=== PATIENT | male | born 1985 | race Caucasian/White ===

== ENCOUNTER 2020-03-26 10:53 | Emergency (ER) | payer SELFPAY ==
[2020-03-26] MEDS ORDERED: LORazepam 2 MG/ML VIAL ONE ×2 (11:18→11:35)
[2020-03-26] MEDS ORDERED: Ringers Lactate 1,000 ML IV ONE (11:18)
[2020-03-26 11:33] LABS: Absolute Lymphocytes (CBC) 1.7 K/uL (0.7-4.9); Basophils % 0.3 % (0-1.3); Hematocrit 41.6 % (39.6-49.0); Lymphocytes % 16.3 % (15.3-44.8); MPV 7.5 fL (7.6-11.3); RBC Red Blood Cell Count 4.88 M/uL (4.33-5.43)
[2020-03-26 11:41] LABS: Protime INR 0.97
[2020-03-26 12:00] LABS: ALT/SGPT 66 U/L (12-78); AST/SGOT 40 U/L (15-37); Alkaline Phosphatase 159 U/L (45-117); BUN Blood Urea Nitrogen 17 mg/dL (7-18); Bicarbonate 27 mmol/L (21-32); Bilirubin Direct 0.2 mg/dL (0-0.2); Bilirubin Total 0.6 mg/dL (0.2-1.0); Glucose Level 101 mg/dL (74-106); Potassium 3.7 mmol/L (3.5-5.1); Protein, Total 8.3 g/dL (6.4-8.2); Sodium Level 136 mmol/L (136-145)
--- NOTE | 2020-03-26 12:20 | EDPHYS ---
Physician Documentation [facility] Name: Arnie Macedo Age: 34 yrs Sex: Male : 1985 Arrival Date: 03/26/2020 Time: 10:55 Bed 2 Private MD: ED Physician Jose Alfredo York HPI: 03/26 11:59 This 34 yrs old Male presents to ER via EMS with complaints of DRUG WITHDRAWL.jr8 11:59 Patient arrested yesterday. Stated that last use was yesterday. Uses meth and heroin. jr8 Stated that his whole body hurts and feels cold and nauseated . Severity of symptoms: At their worst the symptoms were moderate in the emergency department the symptoms are unchanged. The patient has not experienced similar symptoms in the past. The patient has not recently seen a physician. Historical: - Allergies: 11:00 No Known Allergies; hb - Home Meds: 11:00 None [Active]; hb - PMHx: 11:00 None; hb - PSHx: 11:00 None; hb - Immunization history:: Adult Immunizations up to date. - Social history:: Smoking status: Patient reports the use of cigarette tobacco products, smokes one pack cigarettes per day. ROS: 11:59 Eyes: Negative for injury, pain, redness, and discharge, ENT: Negative for injury, jr8 pain, and discharge, Neck: Negative for injury, pain, and swelling, Cardiovascular: Negative for chest pain, palpitations, and edema, Respiratory: Negative for shortness of breath, cough, wheezing, and pleuritic chest pain, Abdomen/GI: Negative for abdominal pain, nausea, vomiting, diarrhea, and constipation, Back: Negative for injury and pain, MS/Extremity: Negative for injury and deformity, Skin: Negative for injury, rash, and discoloration, Neuro: Negative for headache, weakness, numbness, tingling, and seizure. 11:59 Constitutional: Positive for body aches, chills, fatigue. Exam: 11:59 Eyes: Pupils equal round and reactive to light, extra-ocular motions intact. Lids and jr8 lashes normal. Conjunctiva and sclera are non-icteric and not injected. Cornea within normal limits. Periorbital areas with no swelling, redness, or edema. ENT: Nares patent. No nasal discharge, no septal abnormalities noted. Tympanic membranes are normal and external auditory canals are clear. Oropharynx with no redness, swelling, or masses, exudates, or evidence of obstruction, uvula midline. Mucous membranes moist. Neck: Trachea midline, no thyromegaly or masses palpated, and no cervical lymphadenopathy. Supple, full range of motion without nuchal rigidity, or vertebral point tenderness. No Meningismus. Cardiovascular: Regular rate and rhythm with a normal S1 and S2. No gallops, murmurs, or rubs. Normal PMI, no JVD. No pulse deficits. Respiratory: Lungs have equal breath sounds bilaterally, clear to auscultation and percussion. No rales, rhonchi or wheezes noted. No increased work of breathing, no retractions or nasal flaring. Abdomen/GI: Soft, non-tender, with normal bowel sounds. No distension or tympany. No guarding or rebound. No evidence of tenderness throughout. Back: No spinal tenderness. No costovertebral tenderness. Full range of motion. Skin: Warm, dry with normal turgor. Normal color with no rashes, no lesions, and no evidence of cellulitis. MS/ Extremity: Pulses equal, no cyanosis. Neurovascular intact. Full, normal range of motion. Neuro: Awake and alert, GCS 15, oriented to person, place, time, and situation. Cranial nerves II-XII grossly intact. Motor strength 5/5 in all extremities. Sensory grossly intact. Cerebellar exam normal. Normal gait. Vital Signs: 10:56 BP 154 / 92; Pulse 58; Resp 16; Temp 98.7; Pulse Ox 100% ; Weight 81.65 kg; Height 6 hb ft. 1 in. (185.42 cm); Pain 10/10; 12:18 BP 129 / 92; Pulse 63; Resp 16; Pulse Ox 100% on R/A; sv 10:56 Body Mass Index 23.75 (81.65 kg, 185.42 cm) hb MDM: 10:58 Patient medically screened. [facility] 12:13 Data reviewed: vital signs, nurses notes, lab test result(s), EKG. Data interpreted: jr8 Pulse oximetry: on room air is 100 %. Interpretation: normal. Counseling: I had a detailed discussion with the patient and/or guardian regarding: the historical points, exam findings, and any diagnostic results supporting the discharge/admit diagnosis, lab results, the need for outpatient follow up, a psychiatrist, to return to the emergency department if symptoms worsen or persist or if there are any questions or concerns that arise at home. Response to treatment: the patient's symptoms have mildly improved after treatment. 03/26 11:03 Order name: Acetaminophen; Complete Time: 12:13 [facility] 03/26 11:03 Order name: Basic Metabolic Panel; Complete Time: 12: [facility] 03/26 11:03 Order name: CBC with Diff; Complete Time: 11: [facility] 03/26 11:03 Order name: ETOH Level; Complete Time: [facility] 03/26 11:03 Order name: Hepatic Function; Complete Time: 12: [facility] 03/26 11:03 Order name: PT-INR; Complete Time: [facility] 03/26 11:03 Order name: Ptt, Activated; Complete Time: 59 [facility] 03/26 11:03 Order name: Salicylate; Complete Time: 12:13 [facility] 03/26 11:03 Order name: Urine Drug Screen [facility] 03/26 11:03 Order name: EKG; Complete Time: 11:04 [facility] 03/26 11:03 Order name: EKG - Nurse/Tech; Complete Time: 11: [facility] 03/26 12:25 Order name: Urine Dipstick--Ancillary (enter results); Complete Time: 12:30 03/26 11:03 Order name: IV Saline Lock; Complete Time: 11: [facility] 03/26 11:03 Order name: Labs collected and sent; Complete Time: 11: [facility] 03/26 11:03 Order name: Urine Dipstick-Ancillary (obtain specimen); Complete Time: 12:34 Administered Medications: 11:18 Drug: Ringers - Lactated Ringers Solution 1000 ml Route: IV; Rate: bolus; Site: right hb antecubital; 12:15 Follow up: Response: No adverse reaction; IV Status: Completed infusion; IV Intake: hb 1000ml 11:18 Drug: Ativan 1 mg Route: IVP; Site: right antecubital; hb 11:45 Follow up: Response: No adverse reaction hb Disposition: 12:42 Co-signature as Attending Physician, Jose Alfredo York MD. rn Disposition: 03/26/20 12:20 Discharged to Home. Impression: Drug abuse counseling and surveillance of drug abuser, Opioid dependence with withdrawal. - Condition is Stable. - Discharge Instructions: Chemical Dependency, Finding Treatment for Addiction, Opioid Withdrawal, Addiction and the Family, Opioid Use Disorder. - Medication Reconciliation Form, Thank You Letter, Antibiotic Education, Prescription Opioid Use form. - Follow up: Private Physician; When: As needed; Reason: Recheck today's complaints, Continuance of care, Re-evaluation by your physician. - Problem is new. - Symptoms have improved. Signatures: Dispatcher [employer] EDMS Jose Alfredo York MD MD rn Roszak, Josh, PA PA jr8 Roopa Warren RN RN hb Corrections: (The following items were deleted from the chart) 12:35 12:20 03/26/2020 12:20 Discharged to Home. Impression: Drug abuse counseling and hb surveillance of drug abuser; Opioid dependence with withdrawal. Condition is Stable. Forms are Medication Reconciliation Form, Thank You Letter, Antibiotic Education, Prescription Opioid Use. Follow up: Private Physician; When: As needed; Reason: Recheck today's complaints, Continuance of care, Re-evaluation by your physician. Problem is new. Symptoms have improved. jr8
--- NOTE | 2020-03-26 12:20 | ER ---
Nurse's Notes [facility] Name: Arnie Macedo Age: 34 yrs Sex: Male : 1985 Arrival Date: 03/26/2020 Time: 10:55 Bed 2 Private MD: Diagnosis: Drug abuse counseling and surveillance of drug abuser;Opioid dependence with withdrawal Presentation: 03/26 10:56 Chief complaint: EMS states: Daily user of meth and herion, last use was yesterday just hb prior to his arrest, now c/o pain all over and N/V. Zofran 4 mg IVP administered to 18g RAC PATIENT EXPERIENCE COORDINATOR. VS WNL, NSR on 12 lead. Coronavirus screen: At this time, the client does not indicate any symptoms associated with coronavirus-19. Ebola Screen: No symptoms or risks identified at this time. Initial Sepsis Screen: Does the patient meet any 2 criteria? No. Patient's initial sepsis screen is negative. Does the patient have a suspected source of infection? No. Patient's initial sepsis screen is negative. Risk Assessment: Do you want to hurt yourself or someone else? Patient reports no desire to harm self or others. Onset of symptoms was March 26, 2020. Care prior to arrival: IV initiated. 18 GA, in the right antecubital area, Glucose check: 88 Zofran 4 mg IVP. 10:56 Method Of Arrival: EMS: [facility] 10:56 Acuity: [place] 3 hb 10:56 Note [place] [employer] OFFICER AT BEDSIDE. Triage Assessment: 11:00 General: Appears in no apparent distress. Behavior is cooperative, flat, quiet. Pain: Pain currently is 10 out of 10 on a pain scale. EENT: No signs and/or symptoms were reported regarding the EENT system. Neuro: Level of Consciousness is awake, obeys commands, Oriented to person, place, time, situation. Cardiovascular: Capillary refill < 3 seconds Patient's skin is warm and dry. Respiratory: Respiratory effort is even, unlabored, Respiratory pattern is regular, symmetrical. GI: Reports nausea, vomiting. : No signs and/or symptoms were reported regarding the genitourinary system. Derm: Skin is pink, warm \T\ dry. Musculoskeletal: Reports PAIN ALL OVER. Historical: - Allergies: 11:00 No Known Allergies; hb - Home Meds: 11:00 None [Active]; hb - PMHx: 11:00 None; hb - PSHx: 11:00 None; hb - Immunization history:: Adult Immunizations up to date. - Social history:: Smoking status: Patient reports the use of cigarette tobacco products, smokes one pack cigarettes per day. Screenin:02 Abuse screen: Denies threats or abuse. Denies injuries from another. Nutritional hb screening: No deficits noted. Tuberculosis screening: No symptoms or risk factors identified. Fall Risk None identified. Assessment: 11:02 General: SEE TRIAGE ASSESSMENT. hb 12:15 Reassessment: Patient appears in no apparent distress at this time. Patient and/or hb family updated on plan of care and expected duration. Pain level reassessed. Patient is alert, oriented x 3, equal unlabored respirations, skin warm/dry/pink. Vital Signs: 10:56 BP 154 / 92; Pulse 58; Resp 16; Temp 98.7; Pulse Ox 100% ; Weight 81.65 kg; Height 6 hb ft. 1 in. (185.42 cm); Pain 10/10; 12:18 BP 129 / 92; Pulse 63; Resp 16; Pulse Ox 100% on R/A; sv 10:56 Body Mass Index 23.75 (81.65 kg, 185.42 cm) hb ED Course: 10:55 Patient arrived in ED. hb 10:56 Maintain EMS IV. Dressing intact. Good blood return noted. Site clean \T\ dry. Gauge \T\ sv site: 18G R AC. 10:58 [facility] jr8 10:58 Jose Alfredo York MD is Attending Physician. jr8 11:00 Triage completed. hb 11:00 Arm band placed on. hb 11:02 Patient has correct armband on for positive identification. Bed in low position. Call hb light in reach. Side rails up X2. [place] [employer] AT BEDSIDE. 11:04 Roopa Warren, RN is Primary Nurse. hb 11:20 Initial lab(s) drawn, by me, sent to lab. sv 11:30 Awaiting lab results. sv 12:34 No provider procedures requiring assistance completed. IV discontinued, intact, hb bleeding controlled, No redness/swelling at site. Administered Medications: 11:18 Drug: Ringers - Lactated Ringers Solution 1000 ml Route: IV; Rate: bolus; Site: right hb antecubital; 12:15 Follow up: Response: No adverse reaction; IV Status: Completed infusion; IV Intake: hb 1000ml 11:18 Drug: Ativan 1 mg Route: IVP; Site: right antecubital; hb 11:45 Follow up: Response: No adverse reaction hb Intake: 12:15 IV: 1000ml; Total: 1000ml. hb Outcome: 12:20 Discharge ordered by MD. smart 12:34 Discharged to Law Enforcement hb 12:34 Condition: stable 12:34 Discharge instructions given to patient, Instructed on discharge instructions, follow up and referral plans. medication usage, Demonstrated understanding of instructions, follow-up care, medications. 12:35 Patient left the ED. hb Signatures: Shruthi Anthony RN RN Ben Milian PA PA jrRoopa Stacy RN RN hb
[2020-03-26 12:27] LABS: Urine Blood NEGATIVE (NEG); Urine Glucose NEGATIVE (NEG); Urine Protein NEGATIVE (NEG); Urine Specific Gravity 1.015 (1.005-1.030)
[2020-03-26 12:40] VITALS: TEMP 98.7; O2SAT 100
[2020-03-26 12:42] VITALS: BP 129/92
[2020-03-26 12:44] LABS: Barbiturates NEGATIVE (NEGATIVE); Benzodiazepines NEGATIVE (NEGATIVE); Cocaine NEGATIVE (NEGATIVE); METHAMPHETAM POSITIVE (NEGATIVE); Methadone NEGATIVE (NEGATIVE); Opiates POSITIVE (NEGATIVE); Phencyclidine NEGATIVE (NEGATIVE); THC Cannibis POSITIVE (NEGATIVE)
== END 2020-03-26 12:35 | disposition home or self-care (01) ==
LOC: ER 10:53
DX: F11.23 Opioid dependence with withdrawal (principal); Z71.51 Drug abuse counseling and surveillance of drug abuser; F17.210 Nicotine dependence, cigarettes, uncomplicated
CPT/HCPCS: 36415; 80048; 80076; 80307; 80320; 80329; 81003; 85025; 85610; 85730; 93005; 96365; 96375; 99283; J7120

== ENCOUNTER 2022-01-21 13:11 | Emergency (ER) | payer SELFPAY ==
[2022-01-21] MEDS ORDERED: DIPHENHYDRAMINE 50 MG/ML VIAL ONE (13:44)
[2022-01-21] MEDS ORDERED: METOCLOPRAMIDE 10 MG/2mL INJ ONE (13:45)
[2022-01-21] MEDS ORDERED: NA CHLORIDE 0.9% 1,000 ML ONE (13:46)
[2022-01-21 13:48] LABS: Absolute Lymphocytes (CBC) 1.7 K/uL (0.7-4.9); Lymphocytes % 24.1 % (15.3-44.8); MCV 87.2 fL (80-100); MPV 7.8 fL (7.6-11.3); RBC Red Blood Cell Count 5.04 M/uL (4.33-5.43)
[2022-01-21 13:52] LABS: Protime INR 0.98
[2022-01-21 14:02] LABS: ALT/SGPT 43 U/L (12-78); AST/SGOT 25 U/L (15-37); Albumin 3.9 g/dL (3.4-5.0); Alkaline Phosphatase 119 U/L (45-117); BUN Blood Urea Nitrogen 15 mg/dL (7-18); Bicarbonate 23 mmol/L (21-32); Bilirubin Direct 0.2 mg/dL (0-0.2); Bilirubin Total 0.6 mg/dL (0.2-1.0); Glomerular Filtration Rate 116 ml/min (=/>90); Glucose Level 109 mg/dL (74-106); Protein, Total 7.6 g/dL (6.4-8.2); Sodium Level 136 mmol/L (136-145)
[2022-01-21] MEDS ORDERED: LORazepam 2 MG/ML VIAL ONE (14:25)
--- NOTE | 2022-01-21 15:56 | ER ---
Nurse's Notes [facility] Name: Arnie Macedo Age: 36 yrs Sex: Male : 1985 Arrival Date: 01/21/2022 Time: 13:14 Bed 16 Private MD: Diagnosis: Other psychoactive substance abuse Presentation: 01/21 13:10 Chief complaint: EMS states: Patient reports he is withdrawing from heroin and meth, he jg9 is c/o pain all over, he last used \\T\\5 am yesterday and was arrested \\T\\1700 on yesterday. Patient was not very cooperative with answering questions or reporting his complaints. Coronavirus screen: Vaccine status: Patient reports being unvaccinated. Ebola Screen: Patient negative for fever greater than or equal to 101.5 degrees Fahrenheit, and additional compatible Ebola Virus Disease symptoms Patient denies exposure to infectious person. Patient denies travel to an Ebola-affected area in the 21 days before illness onset. Initial Sepsis Screen: Does the patient meet any 2 criteria? No. Patient's initial sepsis screen is negative. Does the patient have a suspected source of infection? No. Patient's initial sepsis screen is negative. Risk Assessment: Do you want to hurt yourself or someone else? Patient reports no desire to harm self or others. Onset of symptoms is unknown. 13:10 Method Of Arrival: EMS: [facility] jg9 13:10 Acuity: [place] 3 jg9 Triage Assessment: 13:15 General: Appears uncomfortable, Behavior is flat, uncooperative. Pain: Complains of jg9 pain in head, neck, chest, abdomen, pelvis, right arm, right hand, left arm, left hand, right leg, right foot, left leg, left foot, back of head, back of neck, back of left arm, back of right arm, posterior chest, buttocks, back of left leg, back of right leg, left heel, right heel and back. Historical: - Allergies: 13:22 No Known Allergies; jg9 - Home Meds: 13:22 None [Active]; jg9 - PMHx: 13:22 None; jg9 - PSHx: 13:22 None; jg9 - Immunization history:: Adult Immunizations not up to date. - Social history:: Smoking status: Patient reports the use of cigarette tobacco products, smokes one pack cigarettes per day. Patient uses alcohol, on a daily basis. street drugs, heroin, Methamphetamine (Meth) IV drugs, heroin, amphetamines. Screenin:23 Abuse screen: Denies threats or abuse. Denies injuries from another. Nutritional jg9 screening: No deficits noted. Tuberculosis screening: No symptoms or risk factors identified. Fall Risk None identified. Assessment: 14:15 Reassessment: No changes from previously documented assessment. Patient and/or family jg9 updated on plan of care and expected duration. Pain level reassessed. Patient is alert, oriented x 3, equal unlabored respirations, skin warm/dry/pink. spoke to midlevel and got order for meds to help with symptoms Patient states symptoms have not improved. 15:00 Reassessment: Patient and/or family updated on plan of care and expected duration. Pain jg9 level reassessed. Patient is alert, oriented x 3, equal unlabored respirations, skin warm/dry/pink. patient sleeping, no obvious distress. 15:43 Reassessment: patient reports he is trying but unable to provide a urine sample at this jg9 time. Psych: 14:52 [place] Suicide Severity Screening: In the past month, have you wished you were jg9 or wished you could go to sleep and not wake up? Patient responds "No." "In the past month, have you actually had any thoughts of killing yourself?" Patient responds "no." "In your lifetime, have you ever done anything, started to do anything, or prepared to do anything to end your life?" Patient responds "no.". Subjective: Patient's mood is irritable, Delusions are denied, Hallucinations are denied Having thoughts of. Objective: Patient is uncooperative, restless, Speech is normal, Affect is appropriate. Interventions: n/a. Safety Checks: Door is open. CO at bedside. Patient uses daily. Patient uses heroin daily. Patient uses methamphetamines daily. Commitment: n/a. Vital Signs: 13:10 BP 136 / 74; Pulse 85; Resp 16 S; Temp 98.1(TE); Pulse Ox 100% on R/A; Weight 81.65 kg jg9 (R); Height 6 ft. 0 in. (182.88 cm) (R); Pain 10/10; 13:15 BP 136 / 74; Pulse 84; Resp 23; Pulse Ox 100% ; jg9 13:30 BP 121 / 53; Pulse 61; Resp 16 S; Pulse Ox 97% on R/A; jg9 13:45 BP 132 / 87; Pulse 67; Resp 16; Pulse Ox 100% on R/A; jg9 14:00 BP 114 / 65; Pulse 82; Resp 22; Pulse Ox 100% on R/A; jg9 15:30 BP 129 / 64; Pulse 68; Resp 14 S; Pulse Ox 99% ; jg9 13:10 Body Mass Index 24.41 (81.65 kg, 182.88 cm) jg9 ED Course: 13:14 Patient arrived in ED. eb 13:16 Varun Monzon PA is PHCP. cp 13:16 Jean Paul Eddy MD is Attending Physician. cp 13:19 [place]i, JOSE EDUARDO is Primary Nurse. jg9 13:22 Triage completed. jg9 13:24 Arm band placed on right wrist. jg9 13:24 Patient has correct armband on for positive identification. Bed in low position. Call jg9 light in reach. Side rails up X 1. 13:33 Inserted saline lock: 22 gauge in right antecubital area, using aseptic technique. jg9 Blood collected. 14:18 Inserted saline lock: 22 gauge in left antecubital area, using aseptic technique. jg9 15:34 Diet: PO fluids at bedside for PO challenge. jg9 16:03 No provider procedures requiring assistance completed. jg9 16:03 IV discontinued. jg9 Administered Medications: 13:46 Drug: NS 0.9% 1000 ml Route: IV; Rate: 1 bolus; Site: right forearm; jg9 15:31 Follow up: IV Status: Completed infusion; IV Intake: 1000ml jg9 13:46 Drug: Reglan (metoCLOPramide) 10 mg Route: IVP; Site: right forearm; jg9 15:31 Follow up: Response: No adverse reaction jg9 13:46 Drug: Benadryl (diphenhydrAMINE) 12.5 mg Route: IVP; Site: right forearm; jg9 14:00 Follow up: Response: No adverse reaction; Pain is unchanged, physician notified jg9 14:21 Drug: Ativan (LORazepam) 1 mg Route: IVP; Site: left antecubital; jg9 14:51 Follow up: Response: No adverse reaction; Marked relief of symptoms jg9 Medication: 16:03 VIS not applicable for this client. jg9 Intake: 15:31 IV: 1000ml; Total: 1000ml. jg9 Outcome: 15:56 Discharge ordered by MD. cohn 16:03 Discharged to Law Enforcement jg9 16:03 Condition: stable 16:03 Discharge instructions given to patient, Instructed on discharge instructions, follow up and referral plans. Demonstrated understanding of instructions, follow-up care. 16:03 Patient left the ED. jg9 Signatures: Varun Monzon PA PA cp Botello, Elizabeth eb Gilmore, Jennifer RN RN jg9
--- NOTE | 2022-01-21 15:56 | EDPHYS ---
Physician Documentation [facility] Name: Arnie Macedo Age: 36 yrs Sex: Male : 1985 Arrival Date: 01/21/2022 Time: 13:14 Bed 16 Private MD: ED Physician Jean Paul Eddy HPI: 01/21 13:25 This 36 yrs old Male presents to ER via EMS with complaints of Drug Withdrawals. cp 13:25 The patient presents to the emergency department withdrawals from drugs and alcohol. cp Associated signs and symptoms: Pertinent positives: nausea, pain all over, Pertinent negatives: diarrhea, visual hallucinations, vomiting. Severity of symptoms: in the emergency department the symptoms are unchanged despite home interventions. 13:25 Patient in custody of law enforcement for evaluation. cp Historical: - Allergies: 13:22 No Known Allergies; jg9 - Home Meds: 13:22 None [Active]; jg9 - PMHx: 13:22 None; jg9 - PSHx: 13:22 None; jg9 - Immunization history:: Adult Immunizations not up to date. - Social history:: Smoking status: Patient reports the use of cigarette tobacco products, smokes one pack cigarettes per day. Patient uses alcohol, on a daily basis. street drugs, heroin, Methamphetamine (Meth) IV drugs, heroin, amphetamines. ROS: 13:30 Constitutional: Negative for fever. cp 13:30 Abdomen/GI: Positive for nausea. cp 13:30 Cardiovascular: Negative for chest pain, edema, palpitations. cp 13:30 Eyes: Negative for injury, pain, redness, and discharge. cp 13:30 ENT: Negative for drainage from ear(s), ear pain, sore throat, difficulty swallowing, difficulty handling secretions. 13:30 Respiratory: Negative for cough, shortness of breath, wheezing. 13:30 Neuro: Negative for altered mental status. 13:30 All other systems are negative. Exam: 13:35 Constitutional: The patient appears in no acute distress, alert, awake, cp non-diaphoretic, non-toxic, well developed, well nourished. 13:35 Head/Face: Normocephalic, atraumatic. cp 13:35 Eyes: Periorbital structures: appear normal, Conjunctiva: normal, no exudate, no injection, Sclera: no appreciated abnormality, Lids and lashes: appear normal, bilaterally. 13:35 ENT: External ear(s): are unremarkable, Nose: is normal, Mouth: Lips: moist, Oral mucosa: moist, Posterior pharynx: Airway: no evidence of obstruction, patent. 13:35 Chest/axilla: Inspection: normal. 13:35 Cardiovascular: Rate: normal, Rhythm: regular, Edema: is not appreciated, JVD: is not appreciated. 13:35 Respiratory: the patient does not display signs of respiratory distress, Respirations: normal, no use of accessory muscles, no retractions, labored breathing, is not present, Breath sounds: are clear throughout, no decreased breath sounds, no stridor, no wheezing. 13:35 Abdomen/GI: Inspection: abdomen appears normal, Palpation: soft, in all quadrants, moderate abdominal tenderness, in all quadrants, rebound tenderness, is not appreciated, involuntary guarding, is not appreciated. 13:35 Neuro: Orientation: to person, place \T\ time. Mentation: is normal, Motor: moves all fours, strength is normal, Sensation: is normal. 14:00 ECG was reviewed by the Attending Physician. Vital Signs: 13:10 BP 136 / 74; Pulse 85; Resp 16 S; Temp 98.1(TE); Pulse Ox 100% on R/A; Weight 81.65 kg 9 (R); Height 6 ft. 0 in. (182.88 cm) (R); Pain 10/10; 13:15 BP 136 / 74; Pulse 84; Resp 23; Pulse Ox 100% ; jg9 13:30 BP 121 / 53; Pulse 61; Resp 16 S; Pulse Ox 97% on R/A; jg9 13:45 BP 132 / 87; Pulse 67; Resp 16; Pulse Ox 100% on R/A; jg9 14:00 BP 114 / 65; Pulse 82; Resp 22; Pulse Ox 100% on R/A; jg9 15:30 BP 129 / 64; Pulse 68; Resp 14 S; Pulse Ox 99% ; jg9 13:10 Body Mass Index 24.41 (81.65 kg, 182.88 cm) 9 MDM: 13:18 Patient medically screened. 15:55 Data reviewed: vital signs, nurses notes, lab test result(s), EKG. cp 15:55 Differential diagnosis: electrolyte abnormality, cardiac arrythmia, sepsis. Test cp interpretation: by ED physician or midlevel provider: ECG. Counseling: I had a detailed discussion with the patient and/or guardian regarding: the historical points, exam findings, and any diagnostic results supporting the discharge/admit diagnosis, lab results, to return to the emergency department if symptoms worsen or persist or if there are any questions or concerns that arise at home. Response to treatment: the patient's symptoms have markedly improved after treatment, and as a result, I will discharge patient. 01/21 13:19 Order name: Acetaminophen; Complete Time: 15:19 cp 01/21 13:19 Order name: Basic Metabolic Panel; Complete Time: 15:19 cp 01/21 15:19 Interpretation: Normal except: GLUC 109. cp 01/21 13:19 Order name: CBC with Diff; Complete Time: 15:19 cp / 15:19 Interpretation: Reviewed. cp 01/21 13:19 Order name: ETOH Level; Complete Time: 15:19 cp 01/21 15:20 Interpretation: Reviewed. cp 01/21 13:19 Order name: Hepatic Function; Complete Time: 15:19 cp 01/21 15:19 Interpretation: Normal except: ALK 119; GLOB 3.7. cp 01/21 13:19 Order name: PT-INR; Complete Time: 15:19 cp 01/21 13:19 Order name: Ptt, Activated; Complete Time: 15:19 cp 01/21 13:19 Order name: Salicylate; Complete Time: 15:19 cp 01/21 13:19 Order name: EKG; Complete Time: 13:19 cp 01/21 13:19 Order name: EKG - Nurse/Tech; Complete Time: 14:51 cp 01/21 13:19 Order name: IV Saline Lock; Complete Time: 13:32 cp 01/21 13:19 Order name: Labs collected and sent; Complete Time: 13:32 cp 01/21 13:19 Order name: Suicide Screening ([place]); Complete Time: 15:31 cp 01/21 15:28 Order name: PO challenge; Complete Time: 16:04 cp EC:00 Rate is 71 beats/min. Rhythm is regular. RI interval is normal. QRS interval is normal. cp QT interval is normal. T waves are Inverted in leads aVL, aVR. Interpreted by me. Reviewed by me. Administered Medications: 13:46 Drug: NS 0.9% 1000 ml Route: IV; Rate: 1 bolus; Site: right forearm; jg9 15:31 Follow up: IV Status: Completed infusion; IV Intake: 1000ml jg9 13:46 Drug: Reglan (metoCLOPramide) 10 mg Route: IVP; Site: right forearm; jg9 15:31 Follow up: Response: No adverse reaction jg9 13:46 Drug: Benadryl (diphenhydrAMINE) 12.5 mg Route: IVP; Site: right forearm; jg9 14:00 Follow up: Response: No adverse reaction; Pain is unchanged, physician notified jg9 14:21 Drug: Ativan (LORazepam) 1 mg Route: IVP; Site: left antecubital; jg9 14:51 Follow up: Response: No adverse reaction; Marked relief of symptoms jg9 Disposition: 16:49 Attestation: The patient's history, exam findings, diagnostics, and a [facility] of [facility] or procedures was reviewed in detail with Varun HODGSON. Disposition Summary: 01/21/22 15:56 Discharge Ordered Location: Home cp Problem: new cp Symptoms: have improved cp Condition: Stable cp Diagnosis - Other psychoactive substance abuse cp Followup: cp - With: Private Physician - When: 1 - 2 days - Reason: Recheck today's complaints Discharge Instructions: - Discharge Summary Sheet cp - Methamphetamines Use Disorder cp - Illegal Drug Use Information, Adult cp Forms: - Medication Reconciliation Form cp - Thank You Letter cp - Antibiotic Education cp - Prescription Opioid Use cp Signatures: Dispatcher [employer] EDDC Varun Monzon PA PA cp Little Rossi RN RN jg9 Jean Paul Eddy MD MD [id number] Corrections: (The following items were deleted from the chart) 15:42 15:40 This 36 yrs old Male presents to ER via EMS with complaints of Drug Withdrawals. cp cp
[2022-01-21 16:49] VITALS: BP 129/64; O2SAT 99
--- NOTE | 2022-01-23 09:06 | EKG ---
Test Date: 2022-01-21 Test Time: 13:56:16 Stranding Supervisor: KVNG MEASUREMENT RESULTS: Intervals: Rate: 71 [place]: 138 QRSD: 90 QT: 382 QTc: 415 [place]: P: 80 [place]: 138 QRS: 91 T: 81 INTERPRETIVE STATEMENTS: Normal sinus rhythm Rightward axis Borderline ECG Compared to ECG 03/26/2020 11:11:50 No significant changes Electronically Signed On 01-23-22 09:03:16 CDT by Keith Lopez
== END 2022-01-21 16:03 | disposition home or self-care (01) ==
LOC: ER 13:11
DX: F19.10 Other psychoactive substance abuse, uncomplicated (principal); R11.0 Nausea; F17.210 Nicotine dependence, cigarettes, uncomplicated
CPT/HCPCS: 36415; 80048; 80076; 80320; 80329; 85025; 85610; 85730; 93005; 99284; J1200; J2765; J7030